=== PATIENT | female | born 1925 | race Caucasian/White ===

== ENCOUNTER → 2016-08-14 | Day surgery (SDC) | payer OTHER ==
[2016-08-08 08:40] VITALS: Ht 147.3 cm; Wt 72.7 kg
[~2016-08-14] VITALS: Ht 147.3 cm; Wt 72.7 kg
[~2016-08-14] MED LIST: ASPCH81X PO; ATOR10TA88 PO; CALC-354 PO; CITA20TA9 PO; CLOB-77 TOP; GLC/500 PO; GLIP-197 PO; INDA1TAB3 PO; INSU70IN2 SC; LIDOCAINE HCL 2% 2 ML VIAL (20MG/ML) ONE; LISI-789 PO; MELA1TAB3; METO50TA16 PO; MULT-506 PO; NITR1CAP33 PO; POTA10CA28 PO; PRMVC EXT; PROPOFOL IV EMULSION 10 MG/ML 20 ML VIAL IV ONE; SODIUM CHLORIDE 0.9% 500ML 500 ML IV ONE; ZOLP5TAB PO
--- NOTE | 2016-08-14 08:35 | Endo History and Physical ---
History & Physical Date of Service: Aug 14, 2016. Chief Complaint: Dysphagia Referring Physician: Dr. Neri History of Present Illness Progressive dysphagia and globus sensation Past Surgical History Hx Cardiac Surgery: Yes (HEART CATH, AORTIC VALVE REPLACEMENT) Hx Internal Defibrillator: No Hx Pacemaker: No Hx Abdominal Surgery: No Hx of Implantable Prosthesis: No Hx Post-Op Nausea and Vomiting: No Hx Cancer Surgery: No Hx Thoracic Surgery: No Hx Orthopedic: Yes (RT/LEFT TKA) Hx Urinary Tract Surgery: No Family History None Social History Smoking Status: Never Smoker Hx Substance Use: No Hx Alcohol Use: No Allergies Coded Allergies: Phenazopyridine (Verified Allergy, Unknown, SEVERE ABD PAIN, 08/08/16) Simvastatin (Verified Allergy, Unknown, BONE ACHED, 08/08/16) Sulfa Antibiotics (Verified Allergy, Unknown, HIVES, 08/08/16) Tramadol (Verified Allergy, Unknown, VOMITTING, 08/08/16) Uncoded Allergies: FERRA-CAPS (Allergy, Unknown, N/V, 08/08/16) Current Medications Reported Home Medications Medications Dose Route/Sig Max Daily Dose Days Date Category Dose Instructions Melatonin (Melatonin-Pyridoxine) 1 Tab Tab 08/14/16 Reported Multivitamin (Multivitamins) Tab 1 Tab PO QAM 08/08/16 Reported Aspirin Chewable (Aspirin) 81 Mg Chew 81 Mg PO QAM 08/08/16 Reported Caltrate 600+D (Calcium Carbonate-Cholecalcife) 1 Tab Tab 1 Tab PO QAM 08/08/16 Reported Premarin (Estrogens, Conjugated) 14 Appln/30 Gm Cr 1 Dose EXT DAILY PRN 08/08/16 Reported Temovate (Clobetasol Propionate) 0.05 % Cre 1 Appln TOP BID PRN 90 08/08/16 Reported Zestril (Lisinopril) 2.5 Mg Tab 1 Tab PO QAM 08/08/16 Reported Lopressor (Metoprolol Tartrate) 50 Mg Tab 50 Mg PO BID 08/08/16 Reported Celexa (Citalopram Hydrobromide) 20 Mg Tab 20 Mg PO QPM 08/08/16 Reported Ambien (Zolpidem Tartrate) 5 Mg Tab 5 Mg PO HS PRN 08/08/16 Reported Glipizide Er (Glipizide) 5 Mg Tab 1 Tab PO QAM 90 08/08/16 Reported Lipitor (Atorvastatin Calcium) 10 Mg Tab 10 Mg PO QPM 08/08/16 Reported Glucophage (Metformin Hcl) 500 Mg Tab 500 Mg PO BID 08/08/16 Reported Macrodantin (Nitrofurantoin Macrocrystals) 50 Mg Cap 50 Mg PO QAM 08/08/16 Reported Novolin 70/30 (Insulin Human Isoph/Insulin Regular) Susp 1 Dose SC BID 08/08/16 Reported TAKES 15 UNITS IN AM TAKES 20 UNITS IN PM Lozol (Indapamide) 1.25 Mg Tab 1 Tab PO QAM 90 08/08/16 Reported Micro-K Ext Rel (Potassium Chloride) 10 Meq Capcr 20 Meq PO BID 08/08/16 Reported Vital Signs Weight (Kilograms): 72.73 Height (Feet): 4 Height (Inches): 10 Date Time Temp Pulse Resp B/P Pulse Ox O2 Delivery O2 Flow Rate FiO2 08/14/16 08:28 36.5 65 20 138/71 95 Room Air Physical Exam General Appearance: WD/WN, no apparent distress Respiratory/Chest: Auscultation: breath sounds normal, no rales/crackles Cardiovascular: Heart Auscultation: RRR, no murmurs Assessment and Plan EGD with dilation.
--- NOTE | 2016-08-14 09:12 | GI REPORT ---
Procedure Date: 08/14/2016 8:22 AM Procedure: Upper GI endoscopy Indications: Dysphagia Medicines: Monitored Anesthesia Care Complications: No immediate complications. Estimated blood loss: None. Estimated Blood Loss: Estimated blood loss: none. Procedure: Pre-Anesthesia Assessment: - Prior to the procedure, a History and Physical was performed, and patient medications, allergies and sensitivities were reviewed. The patient's tolerance of previous anesthesia was reviewed. - ASA Grade Assessment: III - A patient with severe systemic disease. After obtaining informed consent, the endoscope was passed under direct vision. Throughout the procedure, the patient's blood pressure, pulse, and oxygen saturations were monitored continuously. The scope was introduced through the mouth, and advanced to the third part of duodenum. The upper GI endoscopy was accomplished with ease. The patient tolerated the procedure well. Findings: A mild Schatzki ring (acquired) was found at the gastroesophageal junction. A guidewire was placed and the scope was withdrawn. Dilation was performed with an [place] Citizen dilator with no resistance at 36 Fr, 42 Fr and 45 Fr and mild resistance at 48 Fr. The scope was reinserted after each dilation. There was disruption of the ring only after 48 Fr. A small hiatus hernia was present. The stomach was normal. The examined duodenum was normal. Impression: - Mild Schatzki ring. Dilated. - Small hiatus hernia. - Normal stomach. - Normal examined duodenum. - No specimens collected. Recommendation: - Observe patient's clinical course. - Discharge patient to home (with escort). Isaac Jennings M.D. Isaac Jennings MD 08/14/2016 9:11:56 AM This report has been signed electronically. Note Initiated On: 08/14/2016 8:22 AM I attest to the content of the Intraoperative Record and orders documented therein, exceptions below
--- NOTE | 2016-08-14 09:38 | Discharge Instructions ---
Endoscopy Patient Instructions Date / Procedure(s) Performed Aug 14, 2016. EGD Allergy Information Coded Allergies: Phenazopyridine (Verified Allergy, Unknown, SEVERE ABD PAIN, 08/08/16) Simvastatin (Verified Allergy, Unknown, BONE ACHED, 08/08/16) Sulfa Antibiotics (Verified Allergy, Unknown, HIVES, 08/08/16) Tramadol (Verified Allergy, Unknown, VOMITTING, 08/08/16) Uncoded Allergies: FERRA-CAPS (Allergy, Unknown, N/V, 08/08/16) Discharge Date / Findings Aug 14, 2016. Schatzki ring, dilated to 48 Fr. Medication Instructions Stopped Medication(s): Patient stated she was only told to stop her metformin but she stopped everything. Restart Stopped Medication(s): Restart medications today Provider Instructions Activity Restrictions - No exercising or heavy lifting for 24 hours. - Do not drink alcohol the day of the procedure. - Do not drive a car or operate machinery until the day after the procedure. - Do not make any important decisions or sign important papers in 24 hours after the procedure. Following Day: - Return to full activity which may include returning to work/school. Diet Start your diet with liquids and light foods (jello, soup, juice, toast). Then eat your usual diet if not nauseated. Treatment For Common After Affects For mild abdominal pain, bloating, or excessive gas: - Rest - Eat lightly - Lie on right side Follow-Up Information Follow-up with Dr. Mj Velasco as scheduled Anesthesia Information What You Should Know You have had a procedure that required some medicine to reduce anxiety and discomfort. This treatment is called moderate sedation. After receiving the treatment, you may be sleepy, but you will be able to breathe on your own. The effects of the treatment may last for several hours. Follow these instructions along with Activity/Diet recommendations noted above: * Do NOT do anything where dizziness or clumsiness would be dangerous. * Rest quietly at home today, then you can be up and about tomorrow. * Have a responsible person stay with you the rest of today. * You may have had an I.V. today. If so, you may take the dressing off later today. Recommendations Call your doctor if: * Trouble breathing * Continuous vomiting for more than 24 hours * Temperature above 101 degrees * Severe abdominal pain or bloating * Pain not relieved by pain medicine ordered * There is increased drainage or redness from any incision * A large amount of rectal bleeding greater than 2-3 tablespoons. (If you had a polyp/s removed or have hemorrhoids, a small amount of blood - from the rectum is to be expected.) * You have any unanswered questions or concerns. IN THE EVENT OF A SERIOUS EMERGENCY, GO TO THE NEAREST EMERGENCY ROOM Your discharge instructions were prepared by provider Isaac Jennings. Patient Instructions Signature Page Tereza Siddiqui Patient (or Guardian) Signature/Date: I have read and understand the instructions given to me by my caregivers. Caregiver/RN/Doctor Signature/Date: The above-named patient and/or guardian has received patient instructions on this date. + Original Patient Signature Page (only) stays with chart. Please make copy for patient.
[2016-08-14 09:44] VITALS: PULSE 68; O2SAT 93
[2016-08-14 09:48] VITALS: BP 96/76; PULSE 71; O2SAT 94
--- NOTE | 2016-08-14 14:29 | Anesthesiology Progress Note ---
Anesthesia Post Op Note Date & Time Aug 14, 2016 at 14:30 Vital Signs Pain Intensity: 0 Vital Signs Past 12 Hours Date Time Temp Pulse Resp B/P Pulse Ox O2 Delivery O2 Flow Rate FiO2 08/14/16 09:48 71 20 96/76 94 Room Air 08/14/16 09:44 68 20 93 Room Air 08/14/16 09:33 71 20 108/80 91 Room Air 08/14/16 09:18 70 20 88/40 91 Room Air 08/14/16 08:28 36.5 65 20 138/71 95 Room Air Notes Mental Status: alert / awake / arousable, participated in evaluation Pt Amnestic to Procedure: Yes Nausea / Vomiting: adequately controlled Pain: adequately controlled Airway Patency, RR, SpO2: stable & adequate BP & HR: stable & adequate Hydration State: stable & adequate Anesthetic Complications: no major complications apparent
== END | disposition home or self-care (01) ==
LOC: C.GI 08:04
PROVIDERS: ATTEND Internal Medicine Gastroenterology
DX: K22.2 Esophageal obstruction (principal); K44.9 Diaphragmatic hernia without obstruction or gangrene; Z79.82 Long term (current) use of aspirin; Z95.2 Presence of prosthetic heart valve; Z88.2 Allergy status to sulfonamides; Z88.1 Allergy status to other antibiotic agents; Z88.8 Allergy status to other drugs, medicaments and biological substances; Z79.899 Other long term (current) drug therapy

== ENCOUNTER → 2016-08-18 | Outpatient (CLI) | payer OTHER ==
[~2016-08-18] MED LIST changes: -LIDOCAINE HCL 2% 2 ML VIAL (20MG/ML) ONE; -PROPOFOL IV EMULSION 10 MG/ML 20 ML VIAL IV ONE; -SODIUM CHLORIDE 0.9% 500ML 500 ML IV ONE
--- NOTE | 2016-08-18 12:29 | SWALLOWING EVALUATION ---
HISTORY: This 89 year-old woman was referred for a VFSS at [facility] in order to rule out aspiration. The patient reports that she frequently coughs/chokes with both food and liquids, and at times she will have to gag/vomit up food that becomes "stuck'. She recently participated in an EGD on 08/14/16, with findings to include a small hiatal hernia and a Schatzki's ring (dilated). She reports she is still having episodes of coughing despite the dilatation. The patient also has a PMH significant for heart disease with valve replacement. Currently the patient's diet level is regular. PROCEDURE: The patient was seen in the Radiology Department of [facility] for the VFSS. Cursory examination of the oral cavity revealed natural dentition with missing molars. Movement of the articulators was WNL. The patient was seated on a stool and was viewed in both the Anterior-Posterior (A-P) and Lateral planes. Volitional phonation exercises completed in the A-P plane revealed bilateral vocal fold movement and vocal intensity within functional limits. In the lateral plane, the patient was given the following boluses: 1 tsp. thin liquid barium x 2, single swallow thin liquid barium self-presented from a cup, sequential swallows of thin liquid barium self-presented from a straw, 1 tsp. nectar-thick liquid barium, single swallow nectar-thick liquid barium self-presented from a cup, 1 tsp. barium pudding, and 1 club cracker with barium paste. The patient was then repositioned into the A-P plane and given the following boluses: 1 tsp. nectar-thick liquid barium and 1 tsp. barium pudding. RESULTS: Oral Stage: Lip seal was adequate. The patient was able to maintain a cohesive liquid bolus in the oral cavity during the liquid bolus hold task. Mastication was slow and disorganized. Lingual motion for bolus transport was also slow. The initiation of the pharyngeal swallow was delayed and occurred when the bolus head reached the laryngeal aspect of epiglottis. Pharyngeal Stage: Soft palate elevation was complete. Laryngeal elevation revealed partial superior movement of the thyroid cartilage with partial approximation of the arytenoids to the epiglottic base. Anterior hyoid excursion was complete. Epiglottic deflection was complete. Laryngeal vestibular closure was incomplete, as evidenced by a narrow column of contrast being located in the vestibule at the height of the swallow. The pharyngeal stripping wave was present and complete. Pharyngeal contraction was complete. The opening to the pharyngoesophageal segment revealed complete distention and duration of the opening, no obstruction of bolus flow. Tongue base retraction was mildly reduced with a narrow column of contrast being located between the tongue base and pharyngeal wall during the swallow. There was retention located within the valleculae after the swallow was complete. There was evidence of laryngeal penetration with serial swallows via straw with redirection. Otherwise, there was no other laryngeal penetration or aspiration identified during this study. She did have several episodes of throat clearing which was not related to aspiration. Laryngeal penetration is attributed to delayed swallow initiation. Esophageal Stage: There was retention located in the mid esophagus, no retrograde flow evidenced. A liquid wash assisted but was not effective to fully clear the retention. This is suggestive of esophageal dysmotility. SUMMARY/RECOMMENDATIONS: This patient presents with mild oral-pharyngeal dysphagia. In addition, the patient presents with s/s esophageal dysfunction. The following is recommended: 1. Regular diet (soft), slippery, and thin liquids. NO straws. 2. Aspiration and GERD precautions, fully upright for meals and for 30-60 minutes after meals. Do not lay flat at any time to include while asleep. 3. Safe swallow strategies: Small frequent meals. Alternate solids and liquids. Frequent rest breaks while eating. 4. Follow up with GI (appointment scheduled for next week per the patient). Consider further testing and/or medication management as appropriate. A summary of the results and recommendations was discussed with patient and her daughter (with patient's permission) and understanding was verbalized. Both verbal and written information regarding a slippery diet was provided to assist with improved comfort and decreased signs of esophageal dysphagia with meals. Both verbalized understanding. Thank you for referral of this patient. Please contact me at if any additional information is needed.
--- NOTE | 2016-08-18 12:37 | DIAGNOSTIC IMAGING REPORT ---
VIDEO SWALLOW HISTORY: DYSPHAGIA TECHNIQUE: Video fluoroscopic evaluation of swallowing was performed in the AP and lateral projections by the speech pathology staff. The patient is fed nectar-thick and thin liquid barium, a barium coated wafer, and barium pudding. FLUOROSCOPY TIME: 2.7 minutes. A cine loop was submitted. COMPARISON STUDY: None. FINDINGS: There is normal hyoid excursion and epiglottic deflection. A few episodes of deep penetration with the thin liquid barium. However, no aspiration identified during the examination. Mild esophageal dysmotility. IMPRESSION: 1. A few episodes of deep penetration without aspiration 2. Please see the speech pathologist report for detailed findings and recommendations. Electronically signed by: Carlo Jean-Baptiste M.D. 08/18/2016 12:36 PM Dictated Date/Time: 08/18/2016 12:32 PM
== END | disposition home or self-care (01) ==
LOC: C.RAD 11:20
PROVIDERS: ATTEND Nurse Practitioner
DX: R13.10 Dysphagia, unspecified (principal)